=== PATIENT | male | born 1985 | race Caucasian/White ===

== ENCOUNTER → 2024-08-21 | Emergency (ER) | payer SELFPAY ==
[~2024-08-21] MED LIST: Dextrose 50% Abboject 50 ML SYRINGE ONE; Pantoprazole 40 MG VIAL ONE; methylPREDNISolone Sod Succ 40 MG VIAL ONE
[2024-08-21 06:03] LABS: Critical Call w/ Read Back NUR.AEB@0602; Hematocrit 17.7 % (38.8-50.0); Hemoglobin 5.8 g/dL (13.5-17.5); MDiff Complete? YES; Mean Corpuscular HGB CONC 32.8 g/dL (32.0-36.0); Mean Corpuscular Hemoglobin 26.5 pg (27.0-33.0); Mean Corpuscular Volume 80.8 fL (81.2-95.1); Mean Platelet Volume 8.3 fL (7.4-10.4); Platelet Count 331 10x3/uL (150-450); RBC Distribution Width 16.8 % (11.5-14.5); Red Blood Cell (RBC) Count 2.19 10x6/uL (4.32-5.72); White Blood Cell (WBC) Count 8.4 10x3/uL (3.5-10.5)
[2024-08-21 06:27] LABS: ALT (SGPT) 23 U/L (8-55); AST (SGOT) 46 U/L (5-34); Albumin 1.4 g/dL (3.5-5.0); Alcohol Less than 10.0 mg/dL (Less than 10); Alkaline Phosphatase 177 U/L (40-110); Anion Gap 13 mmol/L (10-20); BUN (Urea Nitrogen) 24 mg/dL (8.9-20.6); Bilirubin, Total 0.4 mg/dL (0.2-1.2); Calc. Creatinine Clearance 0 mL/min (70-130); Calcium 7.9 mg/dL (7.8-10.44); Carbon Dioxide 19 mmol/L (22-29); Chloride 96 mmol/L (98-107); Estimated GFR 92; Globulin 8.6 g/dL (2.4-3.5); Glucose 60 mg/dL (70-105); Magnesium 1.8 mg/dL (1.6-2.6); Sodium 124 mmol/L (136-145)
[2024-08-21 07:50] LABS: Band 1 % (5-11); Lymphocytes 8 % (21-51); Metamyelocyte 1 % (0-0); Monocytes 7 % (0-10); Neutrophil 82 % (42-75); Reactive Lymphocytes 1 % (0-10)
[2024-08-21 07:52] LABS: Anisocytosis SLIGHT = 6-15 cells (100X) (0-5/hpf); Hypochromia SLIGHT = 6-15 cells (100X) (0-5/hpf); Polychromasia SLIGHT = 2-3 cells (100X) (0-2/hpf); Tear Drops SLIGHT = 2-5 cells (100X) (0-1/hpf); Toxic Granulation SLIGHT
[2024-08-21 07:53] LABS: Platelet Adequacy Comment Appears Adequate
== END ==
LOC: CSHERS 05:19
DX: D64.9 Anemia, unspecified (principal); Z87.19 Personal history of other diseases of the digestive system
CPT/HCPCS: 36415; 36416; 36430; 71045; 80053; 80307; 83735; 85025; 86850; 86900; 86901; 93005; 96374; 96375; J2470; J2919; J7999; P9016